=== PATIENT | male | born 1980 | race Caucasian/White ===

== ENCOUNTER 2017-03-09 18:42 | Observation (INO) ==
[2017-03-09 19:32] LABS: Basophils % 0.6 %; Eosinophils # 0.2 K/mcL (0.0-0.6); Eosinophils % 2.3 %; Hematocrit 47.8 % (37.5-50.1); Hemoglobin 16.3 g/dL (12.9-16.9); Immature Granulocytes % 0.1 % (0-4); Lymphocytes # 1.5 K/mcL (0.6-4.6); Lymphocytes % 20.6 %; Mean Corpuscular HGB Conc 34.1 g/dL (31.6-35.5); Mean Corpuscular Hemoglobin 30.8 pg (28.0-33.3); Mean Corpuscular Volume 90.2 fL (83.0-100.0); Mean Platelet Volume 9.8 fL (9.4-12.4); Monocytes # 0.5 K/mcL (0.0-1.3); Monocytes % 7.4 %; Neutrophils # 4.9 K/mcL (1.6-8.9); Platelet Count 208 K/mcL (140-400); Red Cell Distribution Width 12.4 % (11.5-14.5)
[2017-03-09 19:35] LABS: Bilirubin,Urine Negative (Negative); Blood,Urine Negative (Negative); Clarity,Urine Clear (Clear); Color,Urine Yellow (Yellow); Glucose,Urine (UA) Normal (Normal); Ketones,Urine Negative (Negative); Leukocyte Esterase,Urine Trace (Negative); Nitrite,Urine Negative (Negative); PH,Urine 6.5 pH Units (5.0-8.0); Protein,Urine Negative (Neg-Trace); Specific Gravity,Urine < 1.005 (1.010-1.025); Urobilinogen,Urine Normal (Normal)
[2017-03-09 19:37] LABS: Bacteria,Urine None Seen per hpf (None-Few); Hyaline Casts,Urine None Seen per lpf (None-Few); RBC,Urine 0-3 per hpf (0-3); Squamous Epithelial Cell,Urine None Seen per lpf (None-Few); WBC,Urine 0-3 per hpf (0-3)
[2017-03-09 19:40] LABS: Amphetamine Screen,Urine Negative ng/mL (Cutoff=1000); Barbiturate Screen,Urine Negative ng/mL (Cutoff=200); Benzodiazepines Screen,Urine Positive ng/mL (Cutoff=200); Cannabinoid Screen,Urine Negative ng/mL (Cutoff = 50); Cocaine Screen,Urine Negative ng/mL (Cutoff= 300); Opiate Screen,Urine Negative ng/mL (Cutoff=300); Phencyclidine Screen,Urine Negative ng/mL (Cutoff=25)
[2017-03-09 19:46] LABS: BUN/Creatinine Ratio 8 (6-26); Blood Urea Nitrogen 8 mg/dL (8-26); Calcium 9.7 mg/dL (8.6-10.8); Carbon Dioxide 31 mEq/L (19-29); Chloride 105 mEq/L (98-109); Ethanol 92 mg/dL (0-10); Glucose 67 mg/dL (70-99); Osmolality,Calculated 297 (280-300); Sodium 145 mEq/L (136-145); eGFR For African Americans > 60 (> 60); eGFR For Non-African Americans > 60 (> 60)
[2017-03-09 19:48] LABS: Acetaminophen < 1.0 mcg/mL (10-30); Salicylate < 5.0 mg/dL (15-30)
--- NOTE | 2017-03-09 20:28 | Emergency Department Note ---
Disposition Clinical Impression: Suicidal ideation, Intentional overdose of drug in tablet form Disposition: Admitted As Inpatient Condition: Good Referrals: NONE,PCP [Primary Care Provider] - Time of Disposition: 20:36 Psych HPI - General Chief Complaint: ED Psychiatric Symptoms Stated Complaint: SI/ med abuse Time Seen by Provider: 03/09/17 19:22 Source: patient Mode of arrival: ambulatory Limitations: no limitations Nursing Notes Reviewed: Yes Vital Signs Reviewed: Yes - History of Present Illness HPI Narrative: 36 year old male presents to the eD with complaints of intentional overdose with 8 tabs, 0.25mg of xanax, etoh binge drinking and plans to crash his car today. He states that his [id number] brought him in because he was concerned that patinet was a danger to himself. Natalee states that he wants to go home. he has been experniecing increased depression and suicidal ideations. - Related Data Allergies Allergy/AdvReac Type Severity Reaction Status Date / Time Penicillins Allergy Anaphylaxis Verified 03/09/17 18:48 Constitutional: Denies: fever, chills, weakness, weight change Eyes: Denies: eye pain, eye discharge, vision change ENT ED: Denies: ear pain, throat pain, dental pain, hearing loss, epistaxis, congestion, dysphagia Cardiovascular: Denies: chest pain, palpitations, dyspnea on exertion, edema, syncope Respiratory: Denies: cough, dyspnea, wheezes, hemoptysis, stridor Gastrointestinal: Denies: abdominal pain, nausea, vomiting, diarrhea, constipation, hematemesis, melena, hematochezia Genitourinary: Denies: urgency, dysuria, frequency, hematuria Musculoskeletal: Denies: back pain, neck pain, arthralgia, myalgia Integumentary: Denies: rash, abrasion, lesions Neurological: Denies: headache, weakness, numbness, paresthesias, confusion, abnormal gait, vertigo Psychiatric: Reports: depression, suicidal thoughts. Denies: anxiety, homicidal thoughts, auditory hallucinations, visual hallucinations Endocrine: Denies: fatigue Hematological/Lymphatic: Denies: easy bleeding, easy bruising Allergic/Immunologic: Denies: facial swelling, urticaria Past Medical History - Past Medical History Medical history: Reports: no medical history Psychiatric history: Reports: anxiety, depression - Social History Smoking Status: Current every day smoker Smokeless Tobacco Status: No Alcohol use: Reports: heavy, recent Drug use: Reports: prescription drug abuse Physical Exam - General Limitations: no limitations General appearance: alert, appears intoxicated - Head Head exam: atraumatic, normocephalic, normal inspection - Eye Eye exam: Present: normal appearance, PERRL, EOMI - Expanded Eye Exam Pupils: Left: reactive - ENT ENT exam: normal exam, normal oropharynx, mucous membranes moist - Expanded ENT Exam External ear exam: Present: normal external inspection Mouth exam: Present: normal external inspection Teeth exam: Present: normal inspection Throat exam: Present: normal inspection - Neck Neck exam: Present: normal inspection, full ROM, trachea midline - Chest Chest inspection: Present: normal inspection, symmetric chest wall rise - Respiratory Respiratory exam: Present: normal lung sounds bilaterally - Cardiovascular Cardiovascular exam: Present: regular rate, normal rhythm, normal heart sounds - Abdominal Exam Abdominal exam: Present: soft, Non-Tender. Absent: tenderness, distention, guarding, rebound, rigidity - Extremities Exam Extremities exam: Present: normal inspection, full ROM. Absent: tenderness, pedal edema - Expanded Upper Extremity Exam Shoulder exam: Present: normal inspection, full ROM Arm exam: Present: normal inspection, full ROM Elbow exam: Present: normal inspection, full ROM Forearm/Wrist exam: Present: normal inspection, full ROM Hand exam: Present: normal inspection, full ROM Vascular exam: Normal: capillary refill, radial pulse - Expanded Lower Extremity Exam Hip/Pelvis exam: Present: normal inspection, full ROM Upper leg exam: Present: normal inspection, full ROM Knee exam: Present: normal inspection, full ROM Lower leg exam: Present: normal inspection, full ROM Ankle exam: Present: normal inspection, full ROM Foot/toe exam: Present: normal inspection, full ROM Neurovascular/Tendon exam: Absent: motor deficit, sensory deficit, tendon deficit - Back Exam Back exam: Present: normal inspection, full ROM. Absent: tenderness - Neurological Exam Neurological exam: Present: alert, oriented X3 - Expanded Neurological Exam Patient oriented to: Present: person, place, time Coma Scale Eye Opening: Spontaneous Coma Scale Motor Response: Obeys Commands Coma Scale Verbal Response: Oriented Coma Scale Total: 15 - Psychiatric Psychiatric exam: Present: normal affect, normal mood - Skin Skin exam: Present: warm, dry, intact, normal color Course Course Narrative: Spoke with 1[facility], they would like like 24 hour medical clearnce before doing an evaluation. we will admit ot meidince, he will need medical clearance - Consultations Consultation #1: discussed case with Dr. Tran and he has accepted patient to his service Time: 20:36 Vital Signs Temperature 98.3 F 03/09/17 18:45 Pulse Rate 98 03/09/17 18:45 Respiratory Rate 14 03/09/17 18:45 Blood Pressure 113/74 03/09/17 18:45 O2 Sat by Pulse Oximetry 99 03/09/17 18:45 Temperature 98.3 F 03/09/17 18:45 Pulse Rate 98 03/09/17 18:45 Respiratory Rate 14 03/09/17 18:45 Blood Pressure 113/74 03/09/17 18:45 O2 Sat by Pulse Oximetry 99 03/09/17 18:45 Oxygen Delivery Oxygen Delivery Room Air Psych - Lab Data Result diagrams: 03/09/17 19:25 03/09/17 19:25 Lab Results 03/09/17 03/09/17 03/09/17 Range/Units 19:20 19:20 19:25 WBC 7.0 (4.3-11.1) K/mcL RBC 5.30 (4.19-5.50) M/mcL Hgb 16.3 (12.9-16.9) g/dL Hct 47.8 (37.5-50.1) % MCV 90.2 (83.0-100.0) fL MCH 30.8 (28.0-33.3) pg MCHC 34.1 (31.6-35.5) g/dL RDW 12.4 (11.5-14.5) % Plt Count 208 (140-400) K/mcL MPV 9.8 (9.4-12.4) fL Immature Gran % 0.1 (0-4) % Seg Neutrophils % 69.0 % Lymphocytes % 20.6 % Monocytes % 7.4 % Eosinophils % 2.3 % Basophils % 0.6 % Neutrophils # 4.9 (1.6-8.9) K/mcL Lymphocytes # 1.5 (0.6-4.6) K/mcL Monocytes # 0.5 (0.0-1.3) K/mcL Eosinophils # 0.2 (0.0-0.6) K/mcL Basophils # 0.0 (0.0-0.2) K/mcL Sodium (136-145) mEq/L Potassium (3.5-4.5) mEq/L Chloride (98-109) mEq/L Carbon Dioxide (19-29) mEq/L BUN (8-26) mg/dL Creatinine (0.72-1.25) mg/dL Est GFR ( Amer) (> 60) Est GFR (Non-Af Amer) (> 60) BUN/Creatinine Ratio (6-26) Glucose (70-99) mg/dL Calculated Osmolality (280-300) Calcium (8.6-10.8) mg/dL Urine Color Yellow (Yellow) Urine Clarity Clear (Clear) Urine pH 6.5 (5.0-8.0) pH Units Ur Specific [place] < 1.005 L (1.010-1.025) Urine Protein Negative (Neg-Trace) mg/dL Urine Glucose (UA) Normal (Normal) mg/dL Urine Ketones Negative (Negative) mg/dL Urine Blood Negative (Negative) Urine Nitrite Negative (Negative) Urine Bilirubin Negative (Negative) Urine Urobilinogen Normal (Normal) mg/dL Ur Leukocyte Esterase Trace H (Negative) Urine Microscopic RBC 0-3 (0-3) per hpf Urine Microscopic WBC 0-3 (0-3) per hpf Ur Squamous Epith Cells None Seen (None-Few) per lpf Urine Bacteria None Seen (None-Few) per hpf Hyaline Casts None Seen (None-Few) per lpf Ur Culture Indicated? YES A (NO) Salicylates (15-30) mg/dL Urine Opiates Screen Negative (Hjfahd=704) ng/mL Acetaminophen (10-30) mcg/mL Ur Barbiturates Screen Negative (Yvtxgl=437) ng/mL Ur Phencyclidine Scrn Negative (Cutoff=25) ng/mL Ur Amphetamines Screen Negative (Bmdsao=8902) ng/mL U Benzodiazepines Scrn Positive H (Lgwbrn=829) ng/mL Urine Cocaine Screen Negative (Cutoff= 300) ng/mL U Marijuana (THC) Screen Negative (Cutoff = 50) ng/mL Ethyl Alcohol (0-10) mg/dL 03/09/17 Range/Units 19:25 WBC (4.3-11.1) K/mcL RBC (4.19-5.50) M/mcL Hgb (12.9-16.9) g/dL Hct (37.5-50.1) % MCV (83.0-100.0) fL MCH (28.0-33.3) pg MCHC (31.6-35.5) g/dL RDW (11.5-14.5) % Plt Count (140-400) K/mcL MPV (9.4-12.4) fL Immature Gran % (0-4) % Seg Neutrophils % % Lymphocytes % % Monocytes % % Eosinophils % % Basophils % % Neutrophils # (1.6-8.9) K/mcL Lymphocytes # (0.6-4.6) K/mcL Monocytes # (0.0-1.3) K/mcL Eosinophils # (0.0-0.6) K/mcL Basophils # (0.0-0.2) K/mcL Sodium 145 (136-145) mEq/L Potassium 4.0 (3.5-4.5) mEq/L Chloride 105 (98-109) mEq/L Carbon Dioxide 31 H (19-29) mEq/L BUN 8 (8-26) mg/dL Creatinine 0.98 (0.72-1.25) mg/dL Est GFR ( Amer) > 60 (> 60) Est GFR (Non-Af Amer) > 60 (> 60) BUN/Creatinine Ratio 8 (6-26) Glucose 67 L (70-99) mg/dL Calculated Osmolality 297 (280-300) Calcium 9.7 (8.6-10.8) mg/dL Urine Color (Yellow) Urine Clarity (Clear) Urine pH (5.0-8.0) pH Units Ur Specific [place] (1.010-1.025) Urine Protein (Neg-Trace) mg/dL Urine Glucose (UA) (Normal) mg/dL Urine Ketones (Negative) mg/dL Urine Blood (Negative) Urine Nitrite (Negative) Urine Bilirubin (Negative) Urine Urobilinogen (Normal) mg/dL Ur Leukocyte Esterase (Negative) Urine Microscopic RBC (0-3) per hpf Urine Microscopic WBC (0-3) per hpf Ur Squamous Epith Cells (None-Few) per lpf Urine Bacteria (None-Few) per hpf Hyaline Casts (None-Few) per lpf Ur Culture Indicated? (NO) Salicylates < 5.0 L (15-30) mg/dL Urine Opiates Screen (Rszjyr=961) ng/mL Acetaminophen < 1.0 L (10-30) mcg/mL Ur Barbiturates Screen (Ckeows=383) ng/mL Ur Phencyclidine Scrn (Cutoff=25) ng/mL Ur Amphetamines Screen (Wgigfb=9229) ng/mL U Benzodiazepines Scrn (Icuqxw=033) ng/mL Urine Cocaine Screen (Cutoff= 300) ng/mL U Marijuana (THC) Screen (Cutoff = 50) ng/mL Ethyl Alcohol 92 H (0-10) mg/dL Psychiatric Medical Clearance - Medical Clearance Checklist Medical History: No Social History Section defined Current Vitals: Last Vital Signs Temp 98.3 F 03/09/17 18:45 Pulse 98 03/09/17 18:45 Resp 14 03/09/17 18:45 BP 113/74 03/09/17 18:45 Pulse Ox 99 03/09/17 18:45 Psychiatric Lab Panel: Drug Levels and Toxicity 03/09/17 03/09/17 19:20 19:25 Urine Opiates Screen Negative Acetaminophen < 1.0 L Ur Barbiturates Screen Negative Ur Phencyclidine Scrn Negative Ur Amphetamines Screen Negative U Benzodiazepines Scrn Positive H Urine Cocaine Screen Negative U Marijuana (THC) Screen Negative Ethyl Alcohol 92 H Abnormal Labs: Abnormal lab results Carbon Dioxide 31 mEq/L (19-29) H 03/09/17 19:25 Glucose 67 mg/dL (70-99) L 03/09/17 19:25 Ur Specific [place] < 1.005 (1.010-1.025) L 03/09/17 19:20 Ur Leukocyte Esterase Trace (Negative) H 03/09/17 19:20 Ur Culture Indicated? YES (NO) A 03/09/17 19:20 Salicylates < 5.0 mg/dL (15-30) L 03/09/17 19:25 Acetaminophen < 1.0 mcg/mL (10-30) L 03/09/17 19:25 U Benzodiazepines Scrn Positive ng/mL (Vteemi=237) H 03/09/17 19:20 Ethyl Alcohol 92 mg/dL (0-10) H 03/09/17 19:25 Statement of Medical Clearance: I have evaluated the patient, reviewed diagnostic information, and certify that the patient's medical condition is sufficiently stable that transfer to the psychiatric unit does not pose a significant risk of deterioration.
[2017-03-09] MEDS ORDERED: Acetaminophen 325 MG TABLET PO PRN (23:27)
[2017-03-09] MEDS ORDERED: Ondansetron 4 MG/2 ML VIAL IVP PRN (23:27)
[2017-03-09] MEDS ORDERED: MOM Conc 10 ML UD.LIQ PO PRN (23:27)
[2017-03-09] MEDS ORDERED: Naloxone 0.4 MG/ML INJ IVP PRN (23:27)
[2017-03-09] MEDS ORDERED: *HR* HYDROcodone/Acet 5/325 mg TABLET PO PRN (23:27)
[2017-03-09] MEDS ORDERED: *HR* Morphine 2 MG/ML SYRINGE IVP PRN (23:27)
[2017-03-09] MEDS ORDERED: *HR* Promethazine 25 MG/ML VIAL IVP PRN (23:27)
[2017-03-09] MEDS ORDERED: *HR* LORazepam 2 MG/ML VIAL IVP PRN (23:30)
--- NOTE | 2017-03-09 23:39 | Internal Med History&Physical ---
Date of Encounter: 03/09/17 Time of Encounter: 22:00 Assessment and Plan (1) Intentional overdose of drug in tablet form Current visit: Yes Status: Acute Will place the pt into Tele for observation He did take 3-4 tabs Xanax 0.25mg 4hrs apart, however he was binze drinking to calm his nerves He did express to carsh his car, and feeling depressed will cont close monitoroing ER attending already signed the pink slip and consulted psychiatrist Will watch him closely today No signs of respiratory depression cont IV fluids symptomatic and supportive care (2) Suicidal ideation Current visit: Yes Status: Acute 1 on 1 observation (3) Alcohol intoxication Current visit: Yes Status: Acute placed him on CIWA protocol counseled to quit drinking on Thiamine, Folic acid and MVT Qualifiers: Qualified Code(s): F10.921 - Alcohol use, unspecified with intoxication delirium (4) Tobacco dependence Current visit: Yes Status: Acute counseled to quit on nicotine patch (5) Depression Current visit: Yes Status: Acute Qualifiers: Qualified Code(s): F32.9 - Major depressive disorder, single episode, unspecified (6) Anxiety Current visit: Yes Status: Acute Internal Medicine - H&P: HPI Chief complaint: Xanax overdose, anxiety / depression Admitted From: Emergency Dept Plans for Post Hospital Care: Home History of present illness: Mr. Jimenez is a 36 year old male with no significant PMH other than substance abuse, alcohol binze drinking, anxeity and depression who presented to the ED with complaints of intentional overdose with 8 tabs, 0.25mg of xanax, etoh binge drinking and plans to crash his car today. He did tell the ER attending that his [id number] brought him in because he was concerned that patient was a danger to himself. He has been experiencing increased depression and suicidal ideations. Patient states that he wants to go home and denied any active suicial ideation at this moment. However he did admit that he does have some social issues, split parent, unable to take care of his daughter and feeling very depressed and anxious lately. He tried to self medicate himself with alcohol and took extra pills of Xanax. He denied any CP / SOB Past Med Surg Social Fam HX - Past Medical History Medical history: no medical history Psychiatric history: anxiety, depression - Past Surgical History Surgical History: other - Social History Smoking Status: Current every day smoker Smokeless Tobacco Status: No Alcohol use: heavy, recent Drug use: prescription drug abuse - Family History Mother Living Status: Still Living Father Living Status: Cause of : COPD Internal Medicine - H&P: Meds ALPRAZolam [Xanax 0.25 MG Tablet] 0.25 mg PO BID PRN 03/09/17 [History] Sertraline [Zoloft] 50 mg PO QPM 03/09/17 [History] 3 Allergy/AdvReac Type Severity Reaction Status Date / Time Penicillins Allergy Anaphylaxis Verified 03/09/17 18:48 All Systems PM: A 10-system review of systems was performed and is negative for pertinent findings except as documented above in the HPI. Review of systems: All the systems are reviewed everything is benign except the systems and symptoms I mentioned in the history of present illness - Constitutional Vitals: Temp Pulse Resp BP Pulse Ox 97.7 F 86 16 121/79 98 03/09/17 21:02 03/09/17 21:02 03/09/17 21:02 03/09/17 21:02 03/09/17 21:02 General appearance: Present: A&O X 3, no acute distress, answers questions appropriately Exam: looks little toxicated - Head Head exam: Present: atraumatic, normal inspection - Neck Neck exam general surgery: Present: supple - Respiratory Respiratory exam: Present: CTAB. Absent: accessory muscle use, rales, rhonchi, wheezes - Cardiovascular Cardiovascular exam: Present: RRR, +S1, +S2. Absent: diastolic murmur, gallop, rubs, systolic murmur - GI/Abdominal GI/Abdominal exam: Present: normal bowel sounds, soft, no peritoneal signs. Absent: distended, tenderness - Extremities Exam Extremities exam: Absent: calf tenderness, pedal edema, tenderness - Back Exam Back exam: Absent: CVA tenderness (L), CVA tenderness (R) - Neurological Exam Neurological exam: Present: alert, oriented X3, no focal deficits - Psychiatric Psychiatric exam: Present: anxious, depressed. Absent: agitated, homicidal ideation, suicidal ideation - Skin Skin exam: Present: dry Internal Med - H&P Results - Labs CBC & Chem 7: 03/09/17 19:25 03/09/17 19:25
[2017-03-10] MEDS: Nicotine 21 MG PATCH.TD24 TD SCH ×2 (00:49→08:40)
[2017-03-10] MEDS: 0.9 % Sodium Chloride 1,000 ML IVC SCH ×2 (00:49→10:00)
[2017-03-10] MEDS: Vitamin B Complex/Vit C/Vit E 1 EACH TABLET PO SCH ×2 (00:50→08:42)
[2017-03-10] MEDS: Famotidine 20 MG TABLET PO SCH ×2 (00:50→08:42)
[2017-03-10] MEDS: Thiamine (B-1) 100 MG TABLET PO SCH ×2 (00:50→08:42)
[2017-03-10] MEDS: Folic Acid 1 MG TABLET PO SCH ×2 (00:50→08:42)
[2017-03-10 04:42] LABS: Basophils % 0.4 %; Eosinophils # 0.2 K/mcL (0.0-0.6); Eosinophils % 3.4 %; Hematocrit 42.1 % (37.5-50.1); Immature Granulocytes % 0.2 % (0-4); Lymphocytes # 1.7 K/mcL (0.6-4.6); Lymphocytes % 35.4 %; Mean Corpuscular HGB Conc 33.5 g/dL (31.6-35.5); Mean Corpuscular Hemoglobin 30.7 pg (28.0-33.3); Mean Corpuscular Volume 91.5 fL (83.0-100.0); Mean Platelet Volume 10.6 fL (9.4-12.4); Monocytes # 0.4 K/mcL (0.0-1.3); Monocytes % 8.3 %; Neutrophils # 2.5 K/mcL (1.6-8.9); Platelet Count 179 K/mcL (140-400); Red Cell Distribution Width 12.5 % (11.5-14.5); Segmented Neutrophils % 52.3 %
[2017-03-10 04:43] LABS: Hemoglobin 14.1 g/dL (12.9-16.9)
[2017-03-10 04:56] LABS: Alanine Aminotransferase 8 Units/L (0-55); Albumin 3.3 g/dL (3.5-5.0); Albumin/Globulin Ratio 1.3 (1.1-2.2); Alkaline Phosphatase 64 Units/L (38-126); Aspartate Amino Transferase 15 Units/L (5-34); BUN/Creatinine Ratio 11 (6-26); Bilirubin,Total 0.5 mg/dL (0.2-1.2); Blood Urea Nitrogen 10 mg/dL (8-26); Calcium 8.7 mg/dL (8.6-10.8); Carbon Dioxide 30 mEq/L (19-29); Chloride 107 mEq/L (98-109); Chol/HDL Ratio 3.3 (0-4.9); Cholesterol 147 mg/dL (< 200); Globulin 2.6 g/dL (2.4-3.5); Glucose 87 mg/dL (70-99); HDL Cholesterol 44 mg/dL (40-59); LDL Cholesterol,Calculated 83 mg/dL (0-99); Magnesium 1.8 mg/dL (1.6-2.6); Osmolality,Calculated 296 (280-300); Potassium 3.7 mEq/L (3.5-4.5); Sodium 144 mEq/L (136-145); Total Protein 5.9 g/dL (6.0-8.3); Triglycerides 100 mg/dL (< 150); eGFR For African Americans > 60 (> 60); eGFR For Non-African Americans > 60 (> 60)
[2017-03-10 11:25] VITALS: BP 124/82
--- NOTE | 2017-03-10 13:44 | Discharge Summary ---
Date of Encounter: 03/10/17 Time of Encounter: 13:43 - Discharge Diagnosis (1) Intentional overdose of drug in tablet form Priority: Primary Status: Acute (2) Suicidal ideation Priority: Secondary Status: Acute (3) Alcohol intoxication Priority: Secondary Status: Resolved Qualifiers: Complication of substance-induced condition: with delirium Qualified Code(s ): F10.921 - Alcohol use, unspecified with intoxication delirium (4) Anxiety Priority: Secondary Status: Acute (5) Depression Priority: Secondary Status: Acute Qualifiers: Depression Type: major depressive disorder Major depression recurrence: single episode Active/Remission status: currently active Major depression episode severity: severe Psychotic features: without psychotic features Qualified Code(s): F32.2 - Major depressive disorder, single episode, severe without psychotic features (6) Tobacco dependence Priority: Secondary Status: Chronic - Discharge Medications Prescriptions: Folic Acid 1 mg PO DAILY #30 tablet Vitamin B Complex/Vit C/Vit E [Stresstab] 1 each PO DAILY #30 tablet Home Medications: Sertraline [Zoloft] 50 mg PO QPM 03/09/17 [History] Folic Acid 1 mg PO DAILY #30 tablet 03/10/17 [Rx] Vitamin B Complex/Vit C/Vit E [Stresstab] 1 each PO DAILY #30 tablet 03/10/17 [ Rx] Allergies/Adverse Reactions: 3 Allergy/AdvReac Type Severity Reaction Status Date / Time Penicillins Allergy Anaphylaxis Verified 03/09/17 18:48 Date of admission: 03/09/17 20:48 Primary care physician: PCP NONE Consults: 03/09/17 23:30 Consult to Database Security Administrator [CONS] Routine Reason for SW Consult: Alcohol intoxication Discharging clinician: Nain Gil Anticipated date of discharge: 03/10/17 - Patient Status Disposition: Home, Self-Care Condition: Good Functional capacity at discharge: independent ambulation Overall status at discharge: patient is progressing back to baseline - Discharge Instructions Follow Up With: NONE,PCP [Primary Care Provider] - (In 1-2 weeks) Additional Instructions: Follow-up with psychiatry in 1-2 weeks - Diet and Activity Activity: increase activity as tolerated Diet: advance to your usual diet Hospital course: Mr. Jimenez is a 36 year old male patient with history of depression and anxiety who apparently took a 3-4 pills of Xanax while drinking alcohol last night with the intention of self-harm. He did report suicidal ideation. As such he was [place] slipped and monitored here overnight. Today he is doing much better and she is medically stable for discharge. Psychiatry has evaluated him and recommend outpatient follow-up with psychiatry or alcohol rehabilitation. - Time Spent with Patient Total time spent providing and/or coordinating discharge services: Less than 30 minutes (20 min) - Constitutional Vitals: Temp Pulse Resp BP Pulse Ox 98.4 F 65 17 124/82 100 03/10/17 11:23 03/10/17 11:23 03/10/17 11:23 03/10/17 11:23 03/10/17 11:23 General appearance: Present: A&O X 3, no acute distress, answers questions appropriately - Respiratory Respiratory exam: Present: CTAB. Absent: accessory muscle use, rales, rhonchi, wheezes - Cardiovascular Cardiovascular exam: Present: RRR, +S1, +S2. Absent: diastolic murmur, gallop, rubs, systolic murmur - GI/Abdominal GI/Abdominal exam: Present: normal bowel sounds, soft, no peritoneal signs. Absent: distended, tenderness
--- NOTE | 2017-03-10 14:51 | Consult Note ---
Date of Encounter: 03/10/17 Time of Encounter: 13:20 Assessment & Recommendation (1) Suicidal ideation Current visit: Yes Status: Resolved Assessment & Recommendation: patient denies any suicidal ideation. (2) Anxiety Current visit: Yes Status: Acute Assessment & Recommendation: conitnue zoloft and outpatient psychiatric service. (3) Alcohol abuse Current visit: Yes Status: Acute Assessment & Recommendation: needs outpatient counselling History of Present Illness Requesting Physician: Nain Gil MD Reason for consult: suicidal ideation History of present illness: Mr. Jimenez is a 36 year old male consulted today for suicide ideation. Patient apparently too 7-8 pills of 0.25 mg and 4 beers as per chart in attempt to hurt self . Today he is stating he does not have any history of depression and no prior treatment. states he has anxiety and he was stressed about his Girl friend , who is no longer with him and he wanted to calm his nerves and he took xanax , he did not take more than 2.5 mg total and had 4 beers , states his family member said he needs to go to hospital. i was fine , and i did not do to hurt my self , i have 14 yr old who needs me. He has not been on psychiatric medication , zoloft and xanax was given to him by his family doctor, he agrees he has alcohol problems drinks daily 6-12 beers and wants to quit , he is willing to go to counselling. He also states he is worried about himself as has heridatary eye disease retinal pigmentation , his mother is 60 ans blind and he is having issues already , has appointment with mandolin repairer . he denies depression ,psychosis, philip , suicidal thoughts /homicidal thoughts at present. He has anxiety and Alcohol use disorder. A/P Anxiety disorder nos. Alcohol abuse disorder Patient at present not in danger to self/others. He needs to follow up for recovery counselling and out patient psychiatrist for anxiety. at present continue zoloft 50 mg am. Thank you for consult. CC: Nain Gil MD Past Med Surg Social Fam HX - Past Medical History Medical history: no medical history - Past Psychiatric History Psychiatric history: Reports: anxiety Family psychiatric history: No Family History of Suicide: None - Past Surgical History Surgical History: other - Social History Smoking Status: Current every day smoker Smokeless Tobacco Status: No Alcohol use: heavy, recent Drug use: prescription drug abuse - Family History Mother Living Status: Still Living Father Living Status: Cause of : COPD Medications & Allergies Sertraline [Zoloft] 50 mg PO QPM 03/09/17 [History] Folic Acid 1 mg PO DAILY #30 tablet 03/10/17 [Rx] Vitamin B Complex/Vit C/Vit E [Stresstab] 1 each PO DAILY #30 tablet 03/10/17 [ Rx] 3 Allergy/AdvReac Type Severity Reaction Status Date / Time Penicillins Allergy Anaphylaxis Verified 03/09/17 18:48 Review of Systems Psychiatric: Reports: anxiety Mental Status Exam Patient orientation: Yes Person, Yes Time, Yes Place Level of alertness: Alert Patient appearance: Appropriate Behavior: calm, cooperative Psychomotor activity: Normal Eye contact: Maintains Eye Contact Mood description: Euthymic/stable Affect description: congruent with mood Speech pattern: Coherent Speech volume: Normal Thought process: Intact Thought content: Yes Intact Attention span: Capable of Focused Attention Memory description: Grossly Intact Patient reliability: Reliable Historian Intelligence estimate: Average Judgment: Good Insight: Full Results - Vital Signs Vital signs: Temp Pulse Resp BP Pulse Ox 98.4 F 65 17 124/82 100 03/10/17 11:23 03/10/17 11:23 03/10/17 11:23 03/10/17 11:23 03/10/17 11:23 - Labs Labs: Laboratory Last Values WBC 4.7 K/mcL (4.3-11.1) 03/10/17 03:44 RBC 4.60 M/mcL (4.19-5.50) 03/10/17 03:44 Hgb 14.1 g/dL (12.9-16.9) D 03/10/17 03:44 Hct 42.1 % (37.5-50.1) 03/10/17 03:44 MCV 91.5 fL (83.0-100.0) 03/10/17 03:44 MCH 30.7 pg (28.0-33.3) 03/10/17 03:44 MCHC 33.5 g/dL (31.6-35.5) 03/10/17 03:44 RDW 12.5 % (11.5-14.5) 03/10/17 03:44 Plt Count 179 K/mcL (140-400) 03/10/17 03:44 MPV 10.6 fL (9.4-12.4) 03/10/17 03:44 Immature Gran % 0.2 % (0-4) 03/10/17 03:44 Seg Neutrophils % 52.3 % 03/10/17 03:44 Lymphocytes % 35.4 % 03/10/17 03:44 Monocytes % 8.3 % 03/10/17 03:44 Eosinophils % 3.4 % 03/10/17 03:44 Basophils % 0.4 % 03/10/17 03:44 Neutrophils # 2.5 K/mcL (1.6-8.9) 03/10/17 03:44 Lymphocytes # 1.7 K/mcL (0.6-4.6) 03/10/17 03:44 Monocytes # 0.4 K/mcL (0.0-1.3) 03/10/17 03:44 Eosinophils # 0.2 K/mcL (0.0-0.6) 03/10/17 03:44 Basophils # 0.0 K/mcL (0.0-0.2) 03/10/17 03:44 Sodium 144 mEq/L (136-145) 03/10/17 03:44 Potassium 3.7 mEq/L (3.5-4.5) 03/10/17 03:44 Chloride 107 mEq/L (98-109) 03/10/17 03:44 Carbon Dioxide 30 mEq/L (19-29) H 03/10/17 03:44 BUN 10 mg/dL (8-26) 03/10/17 03:44 Creatinine 0.87 mg/dL (0.72-1.25) 03/10/17 03:44 Est GFR ( Amer) > 60 (> 60) 03/10/17 03:44 Est GFR (Non-Af Amer) > 60 (> 60) 03/10/17 03:44 BUN/Creatinine Ratio 11 (6-26) 03/10/17 03:44 Glucose 87 mg/dL (70-99) 03/10/17 03:44 POC Glucose 98 (58-89) H 03/09/17 22:02 Calculated Osmolality 296 (280-300) 03/10/17 03:44 Calcium 8.7 mg/dL (8.6-10.8) 03/10/17 03:44 Magnesium 1.8 mg/dL (1.6-2.6) 03/10/17 03:44 Total Bilirubin 0.5 mg/dL (0.2-1.2) 03/10/17 03:44 AST 15 Units/L (5-34) 03/10/17 03:44 ALT 8 Units/L (0-55) 03/10/17 03:44 Alkaline Phosphatase 64 Units/L (38-126) 03/10/17 03:44 Serum Total Protein 5.9 g/dL (6.0-8.3) L 03/10/17 03:44 Albumin 3.3 g/dL (3.5-5.0) L 03/10/17 03:44 Globulin 2.6 g/dL (2.4-3.5) 03/10/17 03:44 Albumin/Globulin Ratio 1.3 (1.1-2.2) 03/10/17 03:44 Triglycerides 100 mg/dL (< 150) 03/10/17 03:44 Cholesterol 147 mg/dL (< 200) 03/10/17 03:44 LDL Cholesterol, Calc 83 mg/dL (0-99) 03/10/17 03:44 VLDL Cholesterol, Calc 20 mg/dL (< 31) 03/10/17 03:44 HDL Cholesterol 44 mg/dL (40-59) 03/10/17 03:44 Cholesterol/HDL Ratio 3.3 (0-4.9) 03/10/17 03:44 Urine Color Yellow (Yellow) 03/09/17 19:20 Urine Clarity Clear (Clear) 03/09/17 19:20 Urine pH 6.5 pH Units (5.0-8.0) 03/09/17 19:20 Ur Specific [place] < 1.005 (1.010-1.025) L 03/09/17 19:20 Urine Protein Negative mg/dL (Neg-Trace) 03/09/17 19:20 Urine Glucose (UA) Normal mg/dL (Normal) 03/09/17 19:20 Urine Ketones Negative mg/dL (Negative) 03/09/17 19:20 Urine Blood Negative (Negative) 03/09/17 19:20 Urine Nitrite Negative (Negative) 03/09/17 19:20 Urine Bilirubin Negative (Negative) 03/09/17 19:20 Urine Urobilinogen Normal mg/dL (Normal) 03/09/17 19:20 Ur Leukocyte Esterase Trace (Negative) H 03/09/17 19:20 Urine Microscopic RBC 0-3 per hpf (0-3) 03/09/17 19:20 Urine Microscopic WBC 0-3 per hpf (0-3) 03/09/17 19:20 Ur Squamous Epith Cells None Seen per lpf (None-Few) 03/09/17 19:20 Urine Bacteria None Seen per hpf (None-Few) 03/09/17 19:20 Hyaline Casts None Seen per lpf (None-Few) 03/09/17 19:20 Ur Culture Indicated? YES (NO) A 03/09/17 19:20 Salicylates < 5.0 mg/dL (15-30) L 03/09/17 19:25 Urine Opiates Screen Negative ng/mL (Qhocfs=555) 03/09/17 19:20 Acetaminophen < 1.0 mcg/mL (10-30) L 03/09/17 19:25 Ur Barbiturates Screen Negative ng/mL ([place]=407) 03/09/17 19:20 Ur Phencyclidine Scrn Negative ng/mL (Cutoff=25) 03/09/17 19:20 Ur Amphetamines Screen Negative ng/mL (Cvjcix=0838) 03/09/17 19:20 U Benzodiazepines Scrn Positive ng/mL (Tyjyyj=603) H 03/09/17 19:20 Urine Cocaine Screen Negative ng/mL (Cutoff= 300) 03/09/17 19:20 U Marijuana (THC) Screen Negative ng/mL (Cutoff = 50) 03/09/17 19:20 Ethyl Alcohol 92 mg/dL (0-10) H 03/09/17 19:25 Consult Discharge Plan - Plan Additional Instructions: Follow-up with psychiatry in 1-2 weeks Referrals: Che Wood, PhD [Partnered Physician] - 03/27/17 2:00 pm Colton King MD [Partnered Physician] - 03/15/17 1:00 pm Prescriptions: Folic Acid 1 mg PO DAILY #30 tablet Vitamin B Complex/Vit C/Vit E [Stresstab] 1 each PO DAILY #30 tablet
--- NOTE | 2017-03-10 19:07 | Electrocardiograph Report ---
[place] [id number] Test Date: 2017-03-09 Pat Name: Dov Jimenez Department: 104 Room: 3B Gender: M Aml Analyst: AM : 1980 Requested By: Cherelle Mejia Order Number: [id number] Reading MD: Bubba Bruno MD Measurements Intervals [place] Rate: 97 P: 49 [place]: 108 QRS: 90 QRSD: 84 T: 52 QT: 318 QTc: 373 Interpretive Statements SINUS RHYTHM WITH SHORT [place] INTERVAL Electronically Signed On 03-10-2017 19:05:47 EDT by Bubba Bruno MD
== END 2017-03-10 15:05 | disposition home or self-care (01) ==
LOC: 3BNU 18:42 → EMEROO 18:42 → SUATTDRO 20:48 → 3BNU 21:01
PROVIDERS: ADMIT Family Medicine; ATTEND Internal Medicine